=== PATIENT | female | born 1975 | race Caucasian/White ===

== ENCOUNTER 2024-02-13 18:17 | Emergency (ER) | payer BC ==
[~2024-02-13] VITALS: Ht 162.6 cm; Wt 64.0 kg
[2024-02-13 18:24] VITALS: BP 105/41; PULSE 62; RESP 18; TEMP 98.3; O2SAT 100
[2024-02-13] MEDS: HYDROCODONE/ACETAMINOPHEN 10/325MG TABLET PO ONE (19:45)
[2024-02-13] MEDS: IBUPROFEN 800MG TABLET PO ONE (19:45)
[2024-02-13] MEDS ORDERED: IBUP-2030 MT (21:50)
[2024-02-13] MEDS ORDERED: HYDR-4001 MT ×2 (21:50→21:53)
== END 2024-02-13 23:03 | disposition home or self-care (01) ==
LOC: ER 18:17
DX: S52.501A Unspecified fracture of the lower end of right radius, initial encounter for closed fracture (principal); V49.49XA Driver injured in collision with other motor vehicles in traffic accident, initial encounter; Y93.89 Activity, other specified; Y92.89 Other specified places as the place of occurrence of the external cause; Y99.8 Other external cause status
CPT/HCPCS: 29125; 73110; 99283